=== PATIENT | male | born 1930 | race Caucasian/White ===

== ENCOUNTER 2016-07-03 23:34 | Observation (INO) | payer MEDICARE ==
[~2016-07-03] VITALS: Ht 170.2 cm; Wt 65.0 kg
[2016-07-03 23:38] VITALS: BP 133/62; PULSE 67; RESP 18; TEMP 98.1; O2SAT 98
[2016-07-03] MEDS ORDERED: VITA100064 PO (23:48)
[2016-07-03] MEDS ORDERED: CARV6.25 PO (23:48)
[2016-07-03] MEDS ORDERED: PLAV75TA29 PO (23:48)
[2016-07-03] MEDS ORDERED: METF500T PO (23:48)
[2016-07-03] MEDS ORDERED: ATOR40TA16 PO (23:48)
[2016-07-03 23:49] VITALS: RESP 18; O2SAT 98
[2016-07-03] MEDS: MORPHINE SULFATE 4 MG/ML INJ IV PUSH ONE (23:54)
[2016-07-04 00:05] LABS: AUTOMATED NEUTROPHIL # 3.5 TH/MM3 (1.8-7.7); BASOPHIL % 0.5 % (0.0-2.0); EOSINOPHIL # 0.6 TH/MM3 (0-0.4); EOSINOPHIL % 8.5 % (0.0-4.0); HEMATOCRIT 34.2 % (39.0-51.0); HEMO FLAGS DIFF FINAL; LYMPH % 34.6 % (9.0-44.0); LYMPHOCYTE # 2.5 TH/MM3 (1.0-4.8); MEAN CELL VOLUME 87.5 FL (80.0-100.0); MEAN CORPUSCULAR HEMOGLOBIN 29.3 PG (27.0-34.0); MEAN CORPUSCULAR HGB CONC 33.5 % (32.0-36.0); MONO % 8.8 % (0.0-8.0); NEUT % 47.6 % (16.0-70.0); PLATELET COUNT 246 TH/MM3 (150-450); RED BLOOD COUNT 3.91 MIL/MM3 (4.50-5.90); RED CELL DISTRIBUTION WIDTH 13.5 % (11.6-17.2); WHITE BLOOD COUNT 7.3 TH/MM3 (4.0-11.0)
[2016-07-04 00:10] LABS: APTT (PATIENT) 26.3 SEC (24.3-30.1); PROTHROMBIN TIME - PATIENT 11.4 SEC (9.8-11.6)
[2016-07-04 00:24] LABS: ANION GAP 8 MEQ/L (5-15); BICARBONATE 30.1 MEQ/L (21.0-32.0); BLOOD UREA NITROGEN 31 MG/DL (7-18); CHLORIDE 103 MEQ/L (98-107); GLOMERULAR FILTRATION RATE 47 ML/MIN (>89); MAGNESIUM 1.5 MG/DL (1.5-2.5); SODIUM (NA) 141 MEQ/L (136-145)
[2016-07-04 00:27] LABS: CREATINE KINASE 105 U/L (39-308)
[2016-07-04 00:39] LABS: CKMB 3.5 NG/ML (0.5-3.6)
--- NOTE | 2016-07-04 00:55 | PD ---
HPI Chief Complaint: Chest Pain Time Seen by Provider: 23:47 Travel History International Travel<30 days: No Contact w/Intl Traveler<30days: No Traveled to known affect area: No History of Present Illness HPI 83-year-old male arrives to the ER complaining of left chest pain for about 1 hour. Initially the pain was 7-8/10. He reports a constant stabbing quality without radiation. Onset occurred at rest. EMS reports normal vital signs on scene. Twelve-lead on scene revealed a right bundle branch block pattern without ischemic injury pattern. The patient has history of coronary artery disease with GA 3 years prior. He was given aspirin 325 mg. He also received 1 spray of nitroglycerin. No change in pain noted. He's had no shortness of breath nausea vomiting cough or fever. Evidently the patient is staying at [facility] due to PTSD and anxiety after his 2 years ago. The patient reports 3 years ago he felt pressure-like pain which was slightly different and underwent catheterization and stents were placed. In the ER the patient states his pain is only "mild." He also states he has a broken heart and feels very lonely. PFSH Past Medical History Cardiac Catheterization: Yes High Cholesterol: Yes Coronary Artery Disease: Yes Diabetes: Yes Patient Takes Glucophage: Yes Hypertension: Yes Tetanus Vaccination: Unknown Influenza Vaccination: No Past Surgical History Coronary Stent: Yes (X 3) Social History Alcohol Use: No Tobacco Use: No Substance Use: No Allergies-Medications (Allergen,Severity, Reaction): Coded Allergies: No Known Allergies (Unverified , 07/03/16) Reported Meds & Prescriptions Reported Meds & Active Scripts Active Reported Metformin (Metformin HCl) 500 Mg Tab 500 Mg PO BIDPC With meals Plavix (Clopidogrel Bisulfate) 75 Mg Tab 75 Mg PO DAILY Vitamin D (Cholecalciferol) 1,000 Unit Tab 1,000 Units PO DAILY Coreg (Carvedilol) 6.25 Mg Tab 6.25 Mg PO BID Atorvastatin (Atorvastatin Calcium) 40 Mg Tab 40 Mg PO HS Review of Systems Except as stated in HPI: all other systems reviewed are Neg General / Constitutional: No: Fever, Chills Cardiovascular: Positive: Chest Pain or Discomfort Respiratory: No: Shortness of Breath Physical Exam Narrative GENERAL: 85 yo male well-nourished well-developed no acute distress SKIN: Warm and dry. HEAD: Atraumatic. Normocephalic. EYES: Pupils equal and round. No scleral icterus. No injection or drainage. ENT: No nasal bleeding or discharge. Mucous membranes pink and moist. NECK: Trachea midline. No JVD. CARDIOVASCULAR: Regular rate and rhythm. RESPIRATORY: No accessory muscle use. Clear to auscultation. Breath sounds equal bilaterally. GASTROINTESTINAL: Abdomen soft, non-tender, nondistended. Hepatic and splenic margins not palpable. MUSCULOSKELETAL: Extremities without clubbing, cyanosis, or edema. No obvious deformities. NEUROLOGICAL: Awake and alert. No obvious cranial nerve deficits. Motor grossly within normal limits. Five out of 5 muscle strength in the arms and legs. Normal speech. PSYCHIATRIC: Appropriate mood and affect; insight and judgment normal. Data Data Last Documented VS Vital Signs Date Time Temp Pulse Resp B/P Pulse Ox O2 Delivery O2 Flow Rate FiO2 07/03/16 23:49 18 98 Nasal Cannula 2 07/03/16 23:41 67 07/03/16 23:38 98.1 133/62 Vital signs reviewed Orders Electrocardiogram (07/03/16 23:47) Basic Metabolic Panel (Bmp) (07/03/16 23:47) Ckmb (Isoenzyme) Profile (07/03/16 23:47) Complete Blood Count With Diff (07/03/16 23:47) Magnesium (Mg) (07/03/16 23:47) Prothrombin Time / Inr (Pt) (07/03/16 23:47) Act Partial Throm Time (Ptt) (07/03/16 23:47) Troponin I (07/03/16 23:47) Chest, Single Ap (07/03/16 23:47) Ecg Monitoring (07/03/16 23:47) Iv Access Insert/Monitor (07/03/16 23:47) Oximetry (07/03/16 23:47) Oxygen Administration (07/03/16 23:47) Morphine Inj (Morphine Inj) (07/04/16 00:00) Sodium Chloride 0.9% Flush (Ns Flush) (07/04/16 00:00) CKMB (07/03/16 23:50) CKMB% (07/03/16 23:50) Admit Order (Ed Use Only) (07/04/16 01:11) Activity Bed Rest With Brp (07/04/16 01:11) Vital Signs (Adult) Q4H (07/04/16 01:11) Cardiac Rhythm .As Directed (07/04/16 01:11) ^ Notify Dr: Other .PRN (07/04/16 01:11) ^ Notify DrPaige Parameters (07/04/16 01:11) Resp Oxygen Nasal Cannula (07/04/16 ) Diet Npo (07/04/16 Breakfast) Ckmb (Isoenzyme) Profile (07/04/16 01:11) Ckmb (Isoenzyme) Profile (07/04/16 04:11) Troponin I (07/04/16 01:11) Troponin I (07/04/16 04:11) Electrocardiogram (07/04/16 01:11) Electrocardiogram (07/04/16 04:11) ^ Obtain (07/04/16 01:11) Sodium Chloride 0.9% Flush (Ns Flush) (07/04/16 01:15) Sodium Chloride 0.9% Flush (Ns Flush) (07/04/16 09:00) Labs Laboratory Tests Test 07/03/16 23:50 White Blood Count 7.3 TH/MM3 Red Blood Count 3.91 MIL/MM3 Hemoglobin 11.5 GM/DL Hematocrit 34.2 % Mean Corpuscular Volume 87.5 FL Mean Corpuscular Hemoglobin 29.3 PG Mean Corpuscular Hemoglobin 33.5 % Concent Red Cell Distribution Width 13.5 % Platelet Count 246 TH/MM3 Mean Platelet Volume 8.0 FL Neutrophils (%) (Auto) 47.6 % Lymphocytes (%) (Auto) 34.6 % Monocytes (%) (Auto) 8.8 % Eosinophils (%) (Auto) 8.5 % Basophils (%) (Auto) 0.5 % Neutrophils # (Auto) 3.5 TH/MM3 Lymphocytes # (Auto) 2.5 TH/MM3 Monocytes # (Auto) 0.6 TH/MM3 Eosinophils # (Auto) 0.6 TH/MM3 Basophils # (Auto) 0.0 TH/MM3 CBC Comment DIFF FINAL Differential Comment Prothrombin Time 11.4 SEC Prothromb Time International 1.0 RATIO Ratio Activated Partial 26.3 SEC Thromboplast Time Sodium Level 141 MEQ/L Potassium Level 4.0 MEQ/L Chloride Level 103 MEQ/L Carbon Dioxide Level 30.1 MEQ/L Anion Gap 8 MEQ/L Blood Urea Nitrogen 31 MG/DL Creatinine 1.42 MG/DL Estimat Glomerular Filtration 47 ML/MIN Rate Random Glucose 135 MG/DL Calcium Level 9.4 MG/DL Magnesium Level 1.5 MG/DL Total Creatine Kinase 105 U/L Creatine Kinase MB 3.5 NG/ML Troponin I LESS THAN 0.02 NG/ML MDM Medical Decision Making Medical Screen Exam Complete: Yes Emergency Medical Condition: Yes Differential Diagnosis NSTEMI, unstable angina, coronary vasospasm, PE, PTX, aortic dissection, pericarditis, myocarditis, endocarditis, PNA, esophageal disease, aneurysm, musculoskeletal etiologies, anxiety, cocaine/sympathomimetic abuse Narrative Course CBC & BMP Diagram 07/03/16 23:50 Troponin is undetectable EKG reveals right bundle branch block pattern left anterior fascicular block pattern with a rate of 68 Chest x-ray reveals no dense consolidation The patient may benefit from a chest evaluation. He is agreeable with plan. Diagnosis Primary Impression: Chest pain Qualified Code: R07.9 - Chest pain, unspecified type Additional Impressions: Loneliness PTSD (post-traumatic stress disorder) Admitting Information Admitting Physician Requests: Observation Matt Melo MD Jul 04, 2016 00:55
[2016-07-04] MEDS: MORPHINE SULFATE 4 MG/ML INJ IV PUSH ONE (01:13)
[2016-07-04] MEDS ORDERED: ACETAMINOPHEN 500 MG CPLT PO PRN (01:15)
[2016-07-04] MEDS ORDERED: ALPRAZolam 0.25 MG TAB PO PRN (01:15)
[2016-07-04] MEDS ORDERED: MORPHINE SULFATE 4 MG/ML INJ IV PRN (01:15)
[2016-07-04] MEDS ORDERED: SODIUM CHLORIDE 0.9% FLUSH 5 ML FLUSH IVF PRN ×2 (01:15)
[2016-07-04] MEDS ORDERED: ONDANSETRON HCL 4 MG/2 ML VIAL IV PRN (01:15)
[2016-07-04] MEDS ORDERED: ACETAMINOPHEN/HYDROcodone 325 MG/7.5 MG TAB PO PRN (01:15)
[2016-07-04] MEDS ORDERED: NITROGLYCERIN 0.4 MG SL 25 TABS/BTL SL PRN (01:15)
[2016-07-04] MEDS ORDERED: TEMAZEPAM 15 MG CAP PO PRN (01:15)
--- NOTE | 2016-07-04 01:28 | RADRPT ---
EXAM DATE/TIME: 07/03/2016 23:53 [facility] COMPARISON: No previous studies available for comparison. INDICATIONS : Chest pain for one hour. MEDICAL HISTORY : None. SURGICAL HISTORY : None. ENCOUNTER: Initial ACUITY: 1 day PAIN SCORE: 5/10 LOCATION: Bilateral chest FINDINGS: Single AP view of the chest. The lungs are clear. Cardiomediastinal silhouette within normal limits. No evidence of pleural effusion or pneumothorax. CONCLUSION: No acute cardiopulmonary disease identified. Naresh Lamb MD on July 04, 2016 at 1:26 Board Certified Radiologist. This report was verified electronically.
[2016-07-04 01:50] VITALS: BP 146/65; PULSE 61; RESP 20; O2SAT 97
[2016-07-04 02:31] LABS: CREATINE KINASE 92 U/L (39-308)
[2016-07-04 04:55] LABS: CREATINE KINASE 85 U/L (39-308)
[2016-07-04 04:58] VITALS: BP 122/90; PULSE 62; RESP 20; TEMP 97.4; O2SAT 98
[2016-07-04 06:47] VITALS: PULSE 61
[2016-07-04 07:24] VITALS: BP 154/70; PULSE 60; RESP 19; TEMP 98; O2SAT 97
[2016-07-04 08:15] VITALS: PULSE 60
[2016-07-04] MEDS ORDERED: DEXTROSE 50% IN WATER 50 ML VIAL(D50) IV PRN (08:30)
[2016-07-04] MEDS ORDERED: GLUCAGON 1 MG/ML VIAL IM/SQ PRN (08:30)
--- NOTE | 2016-07-04 08:59 | HHI.HP ---
[facility] Primary Care Physician Tino Urias MD (Paul) Chief Complaint Chest pain History of Present Illness This is an 85-year-old male that presents to ED complaining of a left-sided chest discomfort. He has history of CAD. States had HI 2 years ago in [place] needing 3 stents. He has not had a stress test or heart catheterization since. He recently moved here from [place] to live with a caregiver however he caregiver when out of town this week and he is living in [facility] for this week. He will move back to their residence afterwards. He complains of developing a discomfort in left side of his chest while sitting at [facility]. Was a dull discomfort as 7 out of 10. Lasted 2 hours. A little nauseous initially. No shortness breath or diaphoresis. He states it does not feel similar to when he needed stents. He states that then he had a pressure with shortness of breath and he did not have these symptoms with yesterday's episode. He has not had recurrence of his chest discomfort. States he has been compliant with his medications. Denies recent illness. Denies fevers or chills. Review of Systems General: Patient denies fevers, chills recent, and recent travel HEENT: Patient denies headache, sore throat, difficulty swallowing. Cardiovascular: Has the chest discomfort as mentioned above. Denies sensation of heart beating rapidly or irregularly. No syncope. Denies diaphoresis. Respiratory: Denies shortness of breath or inspirational chest discomfort. Denies coughing wheezing or hemoptysis. GI: Initially felt a little nauseous. Patient denies vomiting, diarrhea, abdominal pain, bloody stools. Musculoskeletal: Patient denies joint pain or edema. Denies calf pain or edema. Neurovascular: Patient denies numbness, tingling, weakness in extremities. Denies headache. Endocrine: Denies polyuria and polydipsia. Hematologic: Denies easy bruising. Skin: Denies rash or itching. Past Family Social History Allergies: Coded Allergies: No Known Allergies (Unverified , 07/03/16) Past Medical History CAD with stenting. Chronic kidney disease. Hypertension, hyperlipidemia, diabetes. Past Surgical History Cardiac catheterization with stenting 2 years ago in [place]. Reported Medications Reported Meds & Active Scripts Active Reported Metformin (Metformin HCl) 500 Mg Tab 500 Mg PO BIDPC With meals Plavix (Clopidogrel Bisulfate) 75 Mg Tab 75 Mg PO DAILY Vitamin D (Cholecalciferol) 1,000 Unit Tab 1,000 Units PO DAILY Coreg (Carvedilol) 6.25 Mg Tab 6.25 Mg PO BID Atorvastatin (Atorvastatin Calcium) 40 Mg Tab 40 Mg PO HS Active Ordered Medications Current Medications Medications (Trade) Dose Ordered Sig/Tayo Route Start Time Stop Time Status Last Admin (NS Flush) 2 ml UNSCH PRN IVF 07/04/16 00:00 (NS Flush) 2 ml UNSCH PRN IVF 07/04/16 01:15 (NS Flush) 2 ml BID IVF 07/04/16 09:00 (Tylenol) 500 mg Q4H PRN PO 07/04/16 01:15 (Beattie 7.5-325 Mg) 1 tab Q4H PRN PO 07/04/16 01:15 (Morphine Inj) 2 mg Q4H PRN IV 07/04/16 01:15 (Zofran Inj) 4 mg Q6H PRN IV 07/04/16 01:15 (Nitrostat Sl) 0.4 mg Q5M PRN SL 07/04/16 01:15 (Aspirin) 325 mg DAILY PO 07/04/16 09:00 (Restoril) 15 mg HS PRN PO 07/04/16 01:15 (Xanax) 0.25 mg Q8H PRN PO 07/04/16 01:15 (Lipitor) 40 mg HS PO 07/04/16 21:00 (Coreg) 6.25 mg BID PO 07/04/16 09:00 (Plavix) 75 mg DAILY PO 07/04/16 09:00 (D50w (Vial) Inj) 25 ml UNSCH PRN IV 07/04/16 08:30 (Glucagon Inj) 1 mg UNSCH PRN IM/SQ 07/04/16 08:30 Family History Patient was adopted and does not know his biological family history. Social History Patient quit smoking 40 years ago prior that he smoked one pack of cigarettes daily for 30 years. Physical Exam Vital Signs Vital Signs Date Time Temp Pulse Resp B/P Pulse Ox O2 Delivery O2 Flow Rate FiO2 07/04/16 07:24 98.0 60 19 154/70 97 07/04/16 06:47 61 07/04/16 04:58 97.4 62 20 122/90 98 07/04/16 04:22 20 07/04/16 01:50 61 20 146/65 97 07/03/16 23:49 98 Nasal Cannula 2.00 07/03/16 23:49 18 98 Nasal Cannula 2 07/03/16 23:49 98 Nasal Cannula 2 07/03/16 23:41 67 18 98 Room Air 07/03/16 23:38 98.1 67 18 133/62 98 Physical Exam GENERAL: This is a well-nourished, well-developed patient, in no apparent distress. Patient speaks in clear complete sentences. Patient is pleasant. HEENT: Head is atraumatic and normocephalic. Neck is supple without lymphadenopathy and trachea is midline. No JVD or carotid bruits. CARDIOVASCULAR: Grade 2 systolic murmur left sternal border. Regular rate and rhythm without gallops,or rubs. RESPIRATORY: Clear to auscultation. Breath sounds equal bilaterally. No wheezes , rales, or rhonchi. Chest wall is nontender. No use of accessory muscles. GASTROINTESTINAL: Abdomen is nontender, nondistended. Abdomen soft. No obvious pulsatile mass or bruit. No CVA tenderness. Strong femoral pulses bilaterally. Normal bowel sounds in all quadrants. MUSCULOSKELETAL: Patient is moving upper and lower extremities freely. No calf tenderness or edema, no Homans sign. Strong pulses in upper and lower extremities. NEUROLOGICAL: Patient is alert and oriented. Cranial nerves 2-12 are grossly intact. No focal deficits and speech is clear. SKIN: No rash and turgor is normal. Laboratory Laboratory Tests Test 07/03/16 07/04/16 07/04/16 23:50 01:30 04:09 White Blood Count 7.3 Red Blood Count 3.91 Hemoglobin 11.5 Hematocrit 34.2 Mean Corpuscular Volume 87.5 Mean Corpuscular Hemoglobin 29.3 Mean Corpuscular Hemoglobin 33.5 Concent Red Cell Distribution Width 13.5 Platelet Count 246 Mean Platelet Volume 8.0 Neutrophils (%) (Auto) 47.6 Lymphocytes (%) (Auto) 34.6 Monocytes (%) (Auto) 8.8 Eosinophils (%) (Auto) 8.5 Basophils (%) (Auto) 0.5 Neutrophils # (Auto) 3.5 Lymphocytes # (Auto) 2.5 Monocytes # (Auto) 0.6 Eosinophils # (Auto) 0.6 Basophils # (Auto) 0.0 CBC Comment DIFF FINAL Differential Comment Prothrombin Time 11.4 Prothromb Time International 1.0 Ratio Activated Partial 26.3 Thromboplast Time Sodium Level 141 Potassium Level 4.0 Chloride Level 103 Carbon Dioxide Level 30.1 Anion Gap 8 Blood Urea Nitrogen 31 Creatinine 1.42 Estimat Glomerular Filtration 47 Rate Random Glucose 135 Calcium Level 9.4 Magnesium Level 1.5 Total Creatine Kinase 105 92 85 Creatine Kinase MB 3.5 Troponin I LESS THAN 0.02 LESS THAN 0.02 LESS THAN 0.02 Result Diagram: 07/03/160 07/03/162349 Imaging Chest x-ray is read by radiologist as no acute cardiopulmonary disease. Course EKGs have right bundle branch block without significant ST segment depressions or elevations. Assessment and Plan Assessment and Plan * Chest pain: Patient had serial cardiac enzymes and EKGs for ruling out purposes. He has been seen by Dr. Soto cardiology and the chest pain center and will undergo a Lexiscan myocardial perfusion stress test. He would likely be discharged home if the stress test were to be nonischemic. * CAD: Will reassess with stress testing. He needs to have a flower arranger locally. * Hypertension: Continue her medication. * Chronic kidney disease: Continue follow-up with his physician. * Hyperlipidemia: Continue current medication. * Diabetes: Hold metformin at this time and will cover him with sliding scale insulin coverage. But he should resume his metformin and follow diabetic diet at discharge. He will be on 8000-calorie ADA diet while in the chest pain center. Patient is stable time. Is agreeable to this plan. Андрей Heaton Jul 04, 2016 08:59
[2016-07-04] MEDS ORDERED: ASPIRIN 325 MG TAB PO SCH (09:00)
[2016-07-04] MEDS ORDERED: CARVEDILOL 6.25 MG TAB PO SCH (09:00)
[2016-07-04] MEDS ORDERED: CLOPIDOGREL 75 MG TAB PO SCH (09:00)
[2016-07-04] MEDS ORDERED: SODIUM CHLORIDE 0.9% FLUSH 5 ML FLUSH IVF SCH (09:00)
[2016-07-04] MEDS ORDERED: REGADENOSON INJ 0.4 MG/5 ML SYR ONE (09:29)
[2016-07-04] MEDS ORDERED: INSULIN ASPART SUPPLEMENTAL SCALE SQ SCH (11:00)
--- NOTE | 2016-07-04 11:04 | RADRPT ---
EXAM DATE/TIME: 07/04/2016 09:05 [facility] COMPARISON: No previous studies available for comparison. INDICATIONS : Left sided chest pain, right bundle branch block, myocardial infarction, cardaic cath and cardaic laura nts. Angina. Coronary artery disease. DOSE: 25.8 mCi Tc99m Myoview at stress. 8.1 mCi Tc99m Myoview at rest. 0.4 mg Lexiscan STRESS SYMPTOMS: Shortness of breath. EJECTION FRACTION: 67% MEDICAL HISTORY : Diabetes mellitus type 2. Hypertension. Hypercholesterolemia. SURGICAL HISTORY : Coronary artery stent. ENCOUNTER: Initial ACUITY: 1 day PAIN SCALE: 7/10 LOCATION: Left chest TECHNIQUE: The patient underwent pharmacologic stress with infusion of prescribed dose. Continuous ECG tracing was monitored during stress. Gated SPECT imaging was performed after stress and conventional SPECT i maging was performed at rest. The examination was performed on a SPECT/CT scanner, both attenuation and non-corrected datasets were reviewed. FINDINGS: DISTRIBUTION: The maximum perfused segment at stress is in the septal wall. PERFUSION STUDY: The pattern of perfusion at stress is within normal limits. GATED STUDY: There is intact wall motion and thickening without hypokinetic or dyskinetic segments. CONCLUSION: No areas of ischemia are seen. RISK CATEGORY: Low (<1% Annual Mortality Rate) Naman Figueroa MD on July 04, 2016 at 11:00 Board Certified Radiologist. This report was verified electronically.
--- NOTE | 2016-07-04 11:14 | HHI.DCPOC ---
Discharge Care Plan Diagnosis: (1) Chest pain (2) CAD (coronary artery disease) (3) H/O heart artery stent (4) DM (diabetes mellitus) (5) Hypertension (6) Hyperlipidemia (7) Chronic kidney disease (CKD) Goals to Promote Your Health * To prevent worsening of your condition and complications * To maintain your health at the optimal level Directions to Meet Your Goals Take your medications as prescribed Follow your dietary instruction Follow activity as directed Keep your appointments as scheduled Take your immunizations and boosters as scheduled If your symptoms worsen call your PCP, if no PCP go to Urgent Care Center or Emergency Room Smoking is Dangerous to Your Health. Avoid second hand smoke Call the 24-hour hour crisis hotline for domestic abuse at Андрей Heaton Jul 04, 2016 11:14
--- NOTE | 2016-07-04 16:20 | TR ---
Date Performed: 07/04/2016 Time Performed: 09:41:08 DOCTOR: Barb Soto DRUG LIST: CLINICAL HISTORY: ANGINA REASON FOR TEST: Angina REASON FOR ENDING: OBSERVATION: CONCLUSION: Lexiscan stress test was performed under standard four minute protocol. Radionuclid e was injected one minute prior to ending the test. No electrocardiographic abormalities were present to suggest ischemia. Nuclear imaging and interpretation are pending. COMMENTS:
--- NOTE | 2016-07-04 16:24 | EKG ---
Date Performed: 07/04/2016 Time Performed: 05:59:44 PTAGE: 85 years EKG: Sinus rhythm RIGHT BUNDLE BRANCH BLOCK LEFT ANTERIOR FASCICULAR BLOCK MODERATE VOLTAGE CRITERIA FOR LVH, CONSIDER NORMAL VARIANT ABNORMAL ECG Since PREVIOUS TRACING , no significant change noted PREVIOUS TRACIN07/03/2016 23.36 DOCTOR: Barb Soto Interpretating Date/Time 07/04/2016 16:22:57
--- NOTE | 2016-07-04 16:25 | EKG ---
Date Performed: 07/04/2016 Time Performed: 04:18:19 PTAGE: 85 years EKG: Sinus rhythm WITH FIRST DEGREE AV BLOCK RIGHT BUNDLE BRANCH BLOCK LEFT ANTERIOR FASCICULAR BLOCK VOLTAGE CRITERIA FOR LVH ABNORMAL ECG Since previous tracing, no significant change noted NO PREVIOUS TRACING DOCTOR: Barb Soto Interpretating Date/Time 07/04/2016 16:23:57
--- NOTE | 2016-07-04 16:26 | EKG ---
Date Performed: 07/03/2016 Time Performed: 23:36:07 PTAGE: 85 years EKG: Sinus rhythm RIGHT BUNDLE BRANCH BLOCK LEFT ANTERIOR FASCICULAR BLOCK VOLTAGE CRITERIA FOR LVH ABNORMAL ECG NO PREVIOUS TRACING DOCTOR: Barb Soto Interpretating Date/Time 07/04/2016 16:24:42
[2016-07-04] MEDS ORDERED: ATORVASTATIN 40 MG TAB PO SCH (21:00)
== END 2016-07-04 13:13 | disposition home or self-care (01) ==
LOC: NEPC 23:34 → NEDA 07-04 01:14 → NEPHCDU 07-04 04:56
DX: R07.9 Chest pain, unspecified (principal); F43.10 Post-traumatic stress disorder, unspecified; I45.10 Unspecified right bundle-branch block; I25.10 Atherosclerotic heart disease of native coronary artery without angina pectoris; I25.2 Old myocardial infarction; E78.00 Pure hypercholesterolemia, unspecified; N18.9 Chronic kidney disease, unspecified; E11.22 Type 2 diabetes mellitus with diabetic chronic kidney disease; I12.9 Hypertensive chronic kidney disease with stage 1 through stage 4 chronic kidney disease, or unspecified chronic kidney disease; Z79.84 Long term (current) use of oral hypoglycemic drugs; Z79.01 Long term (current) use of anticoagulants; I45.2 Bifascicular block; Z95.5 Presence of coronary angioplasty implant and graft; Z87.891 Personal history of nicotine dependence; E78.5 Hyperlipidemia, unspecified
CPT/HCPCS: 71010; 78452; 80048; 82550; 82552; 82948; 83735; 84484; 85025; 85610; 85730; 93005; 93017; 96374; 99285; A9502; G0378; J2270; J2785